=== PATIENT | male | born 1965 | race Two or more races ===

== ENCOUNTER 2019-02-06 02:46 | Emergency (ER) | payer MEDICAID, OTHER ==
[~2019-02-06] VITALS: Ht 170.2 cm; Wt 81.6 kg
[2019-02-06] MEDS ORDERED: methylPREDNISolone SOD SUCC 125 MG/2 ML VL IM ONE (04:45)
[2019-02-06 05:41] VITALS: BP 133/88
== END 2019-02-06 05:46 | disposition home or self-care (01) ==
LOC: EDBD 02:46 → ER 02:51
DX: M25.462 Effusion, left knee (principal)
CPT/HCPCS: 29505; 73562; 96372; 99283; J2930

== ENCOUNTER 2020-11-30 21:22 | Emergency (ER) | payer MEDICAID ==
[~2020-11-30] VITALS: Ht 177.8 cm; Wt 86.2 kg
[2020-12-01 02:45] VITALS: BP 139/93
== END 2020-12-01 02:51 | disposition home or self-care (01) ==
LOC: ER 21:28
DX: S61.213A Laceration without foreign body of left middle finger without damage to nail, initial encounter (principal); S61.215A Laceration without foreign body of left ring finger without damage to nail, initial encounter; Z88.6 Allergy status to analgesic agent; W26.8XXA Contact with other sharp object(s), not elsewhere classified, initial encounter; Y93.89 Activity, other specified; Y92.89 Other specified places as the place of occurrence of the external cause; Y99.8 Other external cause status
CPT/HCPCS: 12002

== ENCOUNTER 2020-12-16 00:46 | Emergency (ER) | payer MEDICAID ==
[~2020-12-16] VITALS: Ht 177.8 cm; Wt 90.7 kg
[2020-12-16 00:46] VITALS: BP 137/95
== END 2020-12-16 02:22 | disposition left against medical advice (07) ==
LOC: ER 00:47
DX: K08.89 Other specified disorders of teeth and supporting structures (principal); Z53.21 Procedure and treatment not carried out due to patient leaving prior to being seen by health care provider

== ENCOUNTER 2021-08-25 20:29 | Emergency (ER) | payer MEDICAID ==
[~2021-08-25] VITALS: Ht 177.8 cm; Wt 86.2 kg
[2021-08-25 20:34] VITALS: BP 124/87
[2021-08-25] MEDS ORDERED: KETOROLAC TROMETH 60MG/2ML VIAL IM ONE (21:00)
[2021-08-25 21:27] LABS: Basophils # (auto) 0 10 ^3/uL (0-0.2); Basophils % (auto) 0.4 % (0.0-2.0); Eosinophils # (auto) 0 10 ^3/uL (0-0.8); Eosinophils % (auto) 0.1 % (0.0-7.0); Hematocrit 49.5 % (41.0-53.0); Hemoglobin 16.5 g/dL (13.5-17.5); Lymphocytes # (auto) 1.4 10 ^3/uL (0.4-5.4); Lymphocytes % (auto) 11.4 % (10.0-50.0); Mean Corpuscular Hemoglobin 29.9 pg (28.0-32.0); Mean Corpuscular Hgb Conc. 33.3 g/dL (32.0-36.0); Mean Corpuscular Volume 89.7 fL (80.0-100.0); Monocytes # (auto) 0.6 10 ^3/uL (0-1.3); Monocytes % (auto) 5.1 % (0.0-12.0); Neutrophils # (auto) 10.2 10 ^3/uL (1.6-8.6); Red Blood Cells 5.52 10^6/uL (4.5-5.90); Red Cell Distribution Width 14.1 % (11.8-14.3); White Blood Cell 12.3 10^3/uL (4.4-10.8)
[2021-08-25 21:35] LABS: Albumin 4.4 g/dL (3.4-5.0); BUN/Creatinine Ratio 15.2; Calcium 9.7 mg/dL (8.5-10.1)
[2021-08-25 21:38] LABS: Bilirubin, Total 1.2 mg/dL (0.2-1.0); Total Protein 8.2 g/dL (6.4-8.2)
[2021-08-26] MEDS ORDERED: HYDR-4902 PO (17:21)
[2021-08-26] MEDS ORDERED: IBUP800T27 PO (17:21)
== END 2021-08-26 01:31 | disposition left against medical advice (07) ==
LOC: EDBD 20:29 → ER 20:29
DX: R10.9 Unspecified abdominal pain (principal); R11.2 Nausea with vomiting, unspecified; Z53.21 Procedure and treatment not carried out due to patient leaving prior to being seen by health care provider
CPT/HCPCS: 36415; 74176; 80053; 85025

== ENCOUNTER 2021-08-26 13:40 | Emergency (ER) | payer MEDICAID ==
[~2021-08-26] VITALS: Ht 177.8 cm; Wt 86.2 kg
[2021-08-26] MEDS ORDERED: IBUP800T27 PO (17:21)
[2021-08-26] MEDS ORDERED: HYDR-4902 PO (17:21)
[2021-08-26 18:41] VITALS: BP 126/81
== END 2021-08-26 19:19 | disposition home or self-care (01) ==
LOC: ER 13:40
DX: M46.96 Unspecified inflammatory spondylopathy, lumbar region (principal); K57.90 Diverticulosis of intestine, part unspecified, without perforation or abscess without bleeding; Z79.1 Long term (current) use of non-steroidal anti-inflammatories (NSAID)